=== PATIENT | male | born 1945 | race Caucasian/White ===

== ENCOUNTER 2022-04-18 07:29 | Outpatient (CLI) | payer MEDICARE ==
[2022-04-18 08:13] LABS: ALBUMIN 3.3 G/DL (3.4-5.0); ANION GAP 7 (8-16); BLOOD UREA NITROGEN 17 MG/DL (7-18); CHLORIDE 104 MMOL/L (99-107); CREATININE 1.42 MG/DL (0.60-1.10); GLUCOSE 122 MG/DL (70-104); POTASSIUM 4.2 MMOL/L (3.5-5.1); SODIUM 136 MMOL/L (135-145); TOTAL CARBON DIOXIDE 25.2 MMOL/L (24-32); eGFR 49 ML/MIN
[2022-04-18] MEDS ORDERED: iohexol 300mg/ml 100ml inj. ONE (09:17)
[2022-04-19] MEDS ORDERED: RIVA15TA PO (12:40)
[2022-04-19] MEDS ORDERED: PIOG15TA8 PO (12:40)
[2022-04-19] MEDS ORDERED: EZET10TA6 PO (12:40)
[2022-04-19] MEDS ORDERED: ROSU40TA PO (12:40)
[2022-04-19] MEDS ORDERED: AMIO200T61 PO (12:40)
[2022-04-19] MEDS ORDERED: QUIN20TA39 PO (12:40)
[2022-04-19] MEDS ORDERED: AMLO2.5T2 PO (12:40)
== END 2022-04-18 23:59 | disposition home or self-care (01) ==
LOC: RAD 07:29
PROVIDERS: ATTEND Internal Medicine Interventional Cardiology
DX: R91.8 Other nonspecific abnormal finding of lung field (principal); I10 Essential (primary) hypertension; R06.02 Shortness of breath; E78.5 Hyperlipidemia, unspecified; J91.8 Pleural effusion in other conditions classified elsewhere; J90 Pleural effusion, not elsewhere classified; I70.0 Atherosclerosis of aorta
CPT/HCPCS: 36415; 71270; 80048; J3490; Q9967

== ENCOUNTER 2022-04-19 12:14 | Outpatient (CLI) | payer MEDICARE ==
[~2022-04-19] VITALS: Ht 182.9 cm; Wt 103.6 kg
[2022-04-19] VITALS (11 sets, daily range): BP systolic 118–194; BP diastolic 65–96
[2022-04-19] MEDS ORDERED: PIOG15TA8 PO (12:40)
[2022-04-19] MEDS ORDERED: QUIN20TA39 PO (12:40)
[2022-04-19] MEDS ORDERED: MIDAZolam 1mg/ml 10ml vial IV ONE (12:40)
[2022-04-19] MEDS ORDERED: fentaNYL/PF 50MCG/1 ML 2ML syringe IV ONE (12:40)
[2022-04-19] MEDS ORDERED: RIVA15TA PO (12:40)
[2022-04-19] MEDS ORDERED: ROSU40TA PO (12:40)
[2022-04-19] MEDS ORDERED: normal saline 1000ml 1,000 ML IV SCH (12:40)
[2022-04-19] MEDS ORDERED: AMIO200T61 PO (12:40)
[2022-04-19] MEDS ORDERED: AMLO2.5T2 PO (12:40)
[2022-04-19] MEDS ORDERED: EZET10TA6 PO (12:40)
== END 2022-04-19 14:30 | disposition home or self-care (01) ==
LOC: SSTAY O 12:14
PROVIDERS: ATTEND Internal Medicine Interventional Cardiology
DX: J90 Pleural effusion, not elsewhere classified (principal); R91.8 Other nonspecific abnormal finding of lung field
CPT/HCPCS: 93312; 93325; J2250; J7030; A4615

== ENCOUNTER 2023-05-22 10:54 | Day surgery (SDC) | payer MEDICARE ==
[2023-05-19 11:42] LABS: BASOPHILS % (AUTO) 1.1 % (0-1); EOSINOPHILS # (AUTO) 0.2 X10'3 (0-0.9); EOSINOPHILS % (AUTO) 7.7 % (0-6); HEMATOCRIT 40.8 % (42.0-52.0); HEMOGLOBIN 13.7 g/dl (14.0-17.9); LYMPHOCYTES # (AUTO) 0.7 X10'3 (1.1-4.8); MEAN CORPUSCULAR HEMOGLOBIN 33.5 PG (27.0-31.0); MEAN CORPUSCULAR HGB CONC 33.6 g/dL (33.0-36.5); MEAN CORPUSCULAR VOLUME 99.9 FL (78-98); MEAN PLATELET VOLUME 9.4 FL (7.4-10.4); MONOCYTES # (AUTO) 0.4 X10'3 (0-0.9); MONOCYTES % (AUTO) 12.3 % (2-12); NEUTROPHILS # (AUTO) 1.8 X10'3 (1.8-7.7); NEUTROPHILS % (AUTO) 55.9 % (42-75); PLATELET COUNT 97 X10'3 (140-440); RED BLOOD COUNT 4.09 X10'6 (4.70-6.10); RED CELL DISTRIBUTION WIDTH 14.1 % (11.5-14.5); WHITE BLOOD COUNT 3.2 X10'3 (4.5-11.0)
[2023-05-19 11:59] LABS: APTT 40 SECONDS (22-32); INR 1.2 INR; PROTHROMBIN TIME 12.5 SECONDS (9.0-12.0)
[2023-05-19 12:12] LABS: ANION GAP 8 (8-16); BLOOD UREA NITROGEN 29 MG/DL (7-18); BUN/CREATININE RATIO 15.8 (10.0-20.0); CALCIUM 8.9 MG/DL (8.5-10.1); CHLORIDE 107 MMOL/L (99-107); CHOLESTEROL 139 MG/DL (0-200); CREATININE 1.83 MG/DL (0.60-1.10); GLUCOSE 104 MG/DL (70-104); HDL CHOLESTEROL 57 MG/DL (35-60); POTASSIUM 4.5 MMOL/L (3.5-5.1); SODIUM 142 MMOL/L (135-145); TOTAL CARBON DIOXIDE 27.4 MMOL/L (24-32); eGFR 36 ML/MIN
[2023-05-19 12:13] LABS: CHOL/HDL RATIO 2.4 (0.00-4.99); LDL CHOLESTEROL 61 MG/DL (50-100); TRIGLYCERIDES 73 MG/DL (20-135)
[2023-05-22] VITALS (8 sets, daily range): BP systolic 140–183; BP diastolic 44–60; PULSE 46–60; RESP 16; TEMP 98.7; O2SAT 94–99
[~2023-05-22] VITALS: Ht 182.9 cm; Wt 110.2 kg
[~2023-05-22 10:54] MED LIST: AMI200T PO; AMLO2.5T2 PO; EZET10TA6 PO; PIOG15TA8 PO; QUIN20TA39 PO; RIVA15TA PO; ROSU40TA PO
[2023-05-22] MEDS ORDERED: normal saline 1,000 ML IV SCH (11:05)
[2023-05-22] MEDS ORDERED: LORazepam 0.5 MG tablet PO PRN (11:05)
[2023-05-22] MEDS ORDERED: diphenhydrAMINE 25mg capsule PO PRN (11:05)
[2023-05-22] MEDS ORDERED: TRAM50TA2 PO (11:20)
[2023-05-22] MEDS ORDERED: FLO0.4C PO (11:20)
[2023-05-22] MEDS ORDERED: LOSA50TA64 PO (11:20)
[2023-05-22] MEDS ORDERED: GABA300T28 PO (11:20)
[2023-05-22] MEDS ORDERED: FURO40TA4 PO (11:21)
[2023-05-22] MEDS ORDERED: CARV3.122 PO (11:21)
[2023-05-22] MEDS ORDERED: LIDOcaine 1% (10mg/ml) 2ml vial ONE (11:47)
[2023-05-22] MEDS ORDERED: fentaNYL/PF 50MCG/1 ML 2ML syringe ONE ×2 (11:47→13:18)
[2023-05-22] MEDS ORDERED: verapamil 2.5 mg/ml inj IV ONE (11:47)
[2023-05-22] MEDS ORDERED: midazolam 1 mg/ML 2ml injection ONE ×2 (11:47→12:32)
[2023-05-22] MEDS ORDERED: nitroGLYCERIN 500mcg/5mL D5W 5 ML IV ONE (11:48)
[2023-05-22] MEDS ORDERED: iohexol 350MG/ML 100ml bottle IV ONE ×2 (11:48→12:56)
[2023-05-22] MEDS ORDERED: heparin 1,000unit/ml 10ml vial 10 ML ONE ×2 (11:48→12:56)
[2023-05-22 12:04] LABS: ALBUMIN 4.1 G/DL (3.4-5.0); ANION GAP 11 (8-16); BLOOD UREA NITROGEN 31 MG/DL (7-18); BUN/CREATININE RATIO 16.1 (10.0-20.0); CALCIUM 8.9 MG/DL (8.5-10.1); CHLORIDE 106 MMOL/L (99-107); CREATININE 1.92 MG/DL (0.60-1.10); GLUCOSE 107 MG/DL (70-104); POTASSIUM 4.4 MMOL/L (3.5-5.1); SODIUM 143 MMOL/L (135-145); TOTAL CARBON DIOXIDE 25.6 MMOL/L (24-32); eCRCL 36 ML/MIN; eGFR 34 ML/MIN
[2023-05-22 12:13] LABS: APTT 21 SECONDS (22-32); INR 1.1 INR; PROTHROMBIN TIME 12.2 SECONDS (9.0-12.0)
[2023-05-22] MEDS ORDERED: LIDOcaine 1% 30ml preserv. free vial ONE (12:23)
[2023-05-22] MEDS ORDERED: aspirin 325mg tablet ONE (12:59)
[2023-05-22] MEDS ORDERED: clopidogrel 300mg tablet ONE (12:59)
[2023-05-22] MEDS ORDERED: HYDROcodone/acetaminophen 5mg/325mg tablet PO PRN (14:10)
[2023-05-22] MEDS: HYDROcodone/acetaminophen 10/325mg tab PO PRN (14:11)
[2023-05-22 14:29] LABS: ISTAT HGB MIX 12.2 g/dl (14.0-17.9); ISTAT HGB MIX 12.9 g/dl (14.0-17.9); ISTAT Hct MIX 36 %PCV (42-52); ISTAT Hct MIX 38 %PCV (42-52); ISTAT O2 SATURATION MIX VENOUS 67 % (60-80); ISTAT O2 SATURATION MIX VENOUS 90 % (60-80); ISTAT SOURCE BLNK
== END 2023-05-22 16:24 | disposition home or self-care (01) ==
LOC: SSTAY O 10:54
PROVIDERS: ATTEND Student in an Organized Health Care Education/Training Program
DX: I35.0 Nonrheumatic aortic (valve) stenosis (principal); I25.810 Atherosclerosis of coronary artery bypass graft(s) without angina pectoris; I25.82 Chronic total occlusion of coronary artery; I25.10 Atherosclerotic heart disease of native coronary artery without angina pectoris; E78.5 Hyperlipidemia, unspecified; E11.22 Type 2 diabetes mellitus with diabetic chronic kidney disease; I12.9 Hypertensive chronic kidney disease with stage 1 through stage 4 chronic kidney disease, or unspecified chronic kidney disease; N18.9 Chronic kidney disease, unspecified; I48.0 Paroxysmal atrial fibrillation; M48.00 Spinal stenosis, site unspecified; I65.29 Occlusion and stenosis of unspecified carotid artery; Z85.528 Personal history of other malignant neoplasm of kidney; Z90.5 Acquired absence of kidney; Z86.73 Personal history of transient ischemic attack (TIA), and cerebral infarction without residual deficits; Z95.2 Presence of prosthetic heart valve
CPT/HCPCS: 36415; 80048; 80061; 82803; 85014; 85025; 85610; 85730; 93005; 93457; 99152; 99153; C1874; C9604; J1644; J2250; J3010; J3490; J7030; Q9967; A6258; C1725; C1751; C1760; C1769; C1894; C9600

== ENCOUNTER → 2023-06-26 | Outpatient (CLI) | payer MEDICARE ==
[~2023-06-26] MED LIST changes: -AMLO2.5T2 PO; +CARV3.122 PO; +FLO0.4C PO; +FURO40TA4 PO; +GABA300T28 PO; +IODIXANOL 320 MG/ML INFUS..BTL 100ML IV ONE; +LOSA50TA64 PO; -QUIN20TA39 PO; +TRAM50TA2 PO
[2023-06-26 10:56] LABS: BASOPHILS % (AUTO) 0.8 % (0-1); EOSINOPHILS # (AUTO) 0.3 X10'3 (0-0.9); EOSINOPHILS % (AUTO) 8.3 % (0-6); HEMOGLOBIN 13.4 g/dl (14.0-17.9); LYMPHOCYTES # (AUTO) 0.6 X10'3 (1.1-4.8); LYMPHOCYTES % (AUTO) 14.1 % (21-51); MEAN CORPUSCULAR HEMOGLOBIN 33.8 PG (27.0-31.0); MEAN CORPUSCULAR HGB CONC 33.6 g/dL (33.0-36.5); MEAN CORPUSCULAR VOLUME 100.6 FL (78-98); MEAN PLATELET VOLUME 9.4 FL (7.4-10.4); MONOCYTES # (AUTO) 0.7 X10'3 (0-0.9); MONOCYTES % (AUTO) 17.1 % (2-12); NEUTROPHILS # (AUTO) 2.4 X10'3 (1.8-7.7); NEUTROPHILS % (AUTO) 59.7 % (42-75); PLATELET COUNT 114 X10'3 (140-440); RED BLOOD COUNT 3.97 X10'6 (4.70-6.10); RED CELL DISTRIBUTION WIDTH 14.7 % (11.5-14.5); WHITE BLOOD COUNT 3.9 X10'3 (4.5-11.0)
[2023-06-26 11:13] LABS: APTT 51 SECONDS (22-32); INR 1.5 INR; PROTHROMBIN TIME 15.3 SECONDS (9.0-12.0)
[2023-06-26 11:27] LABS: ALANINE AMINOTRANSFERASE 25 U/L (12-78); ALBUMIN 3.7 G/DL (3.4-5.0); ALKALINE PHOSPHATASE 78 IU/L (46-116); ANION GAP 10 (8-16); ASPARTATE AMINO TRANSFERASE 23 U/L (10-37); BILIRUBIN,TOTAL 0.7 MG/DL (0.1-1.0); BLOOD UREA NITROGEN 24 MG/DL (7-18); BUN/CREATININE RATIO 13.5 (10.0-20.0); CALCIUM 8.8 MG/DL (8.5-10.1); CHLORIDE 105 MMOL/L (99-107); CREATININE 1.78 MG/DL (0.60-1.10); GLUCOSE 103 MG/DL (70-104); POTASSIUM 4.3 MMOL/L (3.5-5.1); PRO BRAIN NATRIURETIC PEPTIDE 3747 PG/ML (0-450); SODIUM 140 MMOL/L (135-145); TOTAL CARBON DIOXIDE 25.4 MMOL/L (24-32); TOTAL PROTEIN 7.4 G/DL (6.4-8.2); eGFR 37 ML/MIN
== END | disposition home or self-care (01) ==
LOC: RAD 10:11
PROVIDERS: ATTEND Internal Medicine Cardiovascular Disease
DX: I35.0 Nonrheumatic aortic (valve) stenosis (principal); R06.02 Shortness of breath; I65.29 Occlusion and stenosis of unspecified carotid artery; J90 Pleural effusion, not elsewhere classified; J98.4 Other disorders of lung; N28.1 Cyst of kidney, acquired; K40.90 Unilateral inguinal hernia, without obstruction or gangrene, not specified as recurrent; M47.815 Spondylosis without myelopathy or radiculopathy, thoracolumbar region; Z95.1 Presence of aortocoronary bypass graft
CPT/HCPCS: 36415; 71046; 71270; 74174; 75572; 80053; 83880; 85025; 85610; 85730; J3490; Q9967; A7015

== ENCOUNTER 2023-09-13 17:39 | Emergency (ER) | payer MEDICARE ==
[~2023-09-13] VITALS: Ht 182.9 cm; Wt 104.0 kg
[~2023-09-13 17:39] MED LIST changes: +CHOL200074 PO; +CLOP75TA34 PO; +CYAN100082 PO; +GABA300C PO; -GABA300T28 PO; -IODIXANOL 320 MG/ML INFUS..BTL 100ML IV ONE; +MELA10TA2 PO; +OMEG100037 PO; -PIOG15TA8 PO; +UBID200C18 PO; +VITA-325 PO; +[UNRECOGNIZED DRUG - CODE]
[2023-09-13 17:45] VITALS: TEMP 97.6
[2023-09-13] MEDS ORDERED: LIDOcaine 1% W/epiNEPHrine 1:100,000 20ml vial SQ ONE (20:05)
[2023-09-13] MEDS: LIDOcaine 1% W/epiNEPHrine 1:100,000 20ml vial SQ ONE (20:21)
[2023-09-13] MEDS: TETanus/Pertussis (Acell)/Diphther VAC/PF (Tdap-Adult) 0.5ml syringe IMVAC ONE (20:22)
[2023-09-13 21:12] VITALS: BP 169/71; PULSE 53; RESP 16; O2SAT 99
[2023-09-13] MEDS ORDERED: CEPH-585 PO (21:17)
== END 2023-09-13 21:29 | disposition home or self-care (01) ==
LOC: ER 17:40
DX: S81.811A Laceration without foreign body, right lower leg, initial encounter (principal); Z79.899 Other long term (current) drug therapy; X58.XXXA Exposure to other specified factors, initial encounter; Y93.89 Activity, other specified; Y92.89 Other specified places as the place of occurrence of the external cause; Y99.8 Other external cause status
CPT/HCPCS: 12001; 90715; 99284; A6222; A6258; G0008; J3490; J7030; Z7610; 12011; 90471

== ENCOUNTER 2024-01-22 09:17 | Outpatient (CLI) | payer MEDICARE, OTHER ==
[~2024-01-22 09:17] MED LIST changes: +CEPH-585 PO
== END 2024-01-22 23:59 | disposition home or self-care (01) ==
LOC: CARD DIAG 09:17
PROVIDERS: ATTEND Chiropractor
DX: I08.8 Other rheumatic multiple valve diseases (principal); I25.10 Atherosclerotic heart disease of native coronary artery without angina pectoris; Z95.1 Presence of aortocoronary bypass graft; Z95.2 Presence of prosthetic heart valve
CPT/HCPCS: 93306